=== PATIENT | female | born 2005 | race African-American/Black ===

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

== ENCOUNTER 2023-05-29 08:48 | Outpatient (CLI) | payer OTHER ==
[~2023-05-29] VITALS: Ht 167.6 cm; Wt 92.0 kg
[2023-05-29] MEDS ORDERED: HOME MED LIST COMPLETE! XX SCH (11:45)
== END 2023-05-29 12:15 | disposition home or self-care (01) ==
LOC: M LDO 08:48
PROVIDERS: ATTEND Specialist
DX: O26.893 Other specified pregnancy related conditions, third trimester (principal); R10.2 Pelvic and perineal pain; M54.50 Low back pain, unspecified; Z3A.35 35 weeks gestation of pregnancy
CPT/HCPCS: 59025; 76816; 76820; G0463